=== PATIENT | female | born 1980 | race Caucasian/White ===

== ENCOUNTER → 2023-12-10 14:33 | Outpatient (CLI) | payer OTHER, SELFPAY ==
--- NOTE | 2023-12-10 14:38 | DI.US.S_ITS ---
PROCEDURE: US PELVIC COMPLETE INDICATIONS: CYST / DYSMENORRHEA TECHNIQUE: Real-time scanning was performed of the pelvic organs, with image documentation. Additional endovaginal scanning was necessary due to incomplete visualization of the adnexal and endometrial structures by transabdominal scanning. COMPARISON: None. FINDINGS: Uterus: Uterus is anteverted and normal in size at 8.5 x 4.7 x 6.3 cm. The myometrium is homogeneous. The endometrium measures 10 mm combined thickness. Mid anterior intramural fibroid measuring 1.9 x 1.1 x 1.8 cm. Ovaries: The right ovary measures 3.7 x 3.0 x 2.8 cm, with a calculated ovarian volume of 3.2 cc. Right ovarian simple cyst measuring 2.2 x 2.3 x 1.8 cm. The left ovary measures 2.0 x 1.6 x 1.2 cm, with a calculated ovarian volume of 2.8 cc. The ovaries have a normal sonographic appearance. Less than 12 follicles can be seen in each ovary. No adnexal masses are seen. Other: No pathologic free abdominal or pelvic fluid. IMPRESSION: 1. Endometrium measures 10 mm which is normal in thickness for a premenopausal female. 2. Right ovarian simple cyst measuring 2.3 cm. 3. Mid anterior intramural fibroid measuring 1.9 cm. We strive to produce accurate, complete, and clear reports of imaging services. To assist us in improving patient care, this report was composed using standard report templates and voice recognition software. Therefore, it may contain abnormal punctuation, insertions and/or omissions. Occasional wrong-word or sound-alike substitutions may occur. Though we review the report and make efforts to correct it, we do recommend that the report be read carefully in proper context to recognize any text inaccuracies. Dictated by: Marcus Mcdonnell M.D. on 12/10/2023 at 21:07 Approved by: Marcus Mcdonnell M.D. on 12/10/2023 at 21:09
== END ==
PROVIDERS: PCP Nurse Practitioner; Referring Provider Nurse Practitioner; Visit Provider Nurse Practitioner
DX: N94.6 Dysmenorrhea, unspecified (principal); N83.291 Other ovarian cyst, right side; D25.1 Intramural leiomyoma of uterus; L72.9 Follicular cyst of the skin and subcutaneous tissue, unspecified
CPT/HCPCS: 76856

== ENCOUNTER → 2023-12-27 11:14 | Outpatient (CLI) | payer OTHER, SELFPAY ==
[2023-12-27 12:58] LABS: Cancer Antigen 125 21.6 U/mL (0-35)
== END ==
PROVIDERS: PCP Nurse Practitioner; Referring Provider Obstetrics & Gynecology; Visit Provider Obstetrics & Gynecology
DX: N83.201 Unspecified ovarian cyst, right side (principal)
CPT/HCPCS: 36415; 86304